=== PATIENT | female | born 2000 | race Two or more races ===

== ENCOUNTER 2024-10-26 11:32 | Inpatient (IN) | payer BC, MEDICAID, SELFPAY ==
[2024-10-26] VITALS (160 sets, daily range): BP systolic 103–155; BP diastolic 55–100; PULSE 73–123; RESP 18–99; TEMP 36.6–37; O2SAT 94–100; BMI 41.3
[2024-10-26 12:20] LABS: ROM Kit Lot # 57809118; ROM Swab Mixed By: KB; Rupture of Fetal Membranes Positive (Negative); Swb Mxed in Solvent 1 min? Yes
[2024-10-26 13:29] LABS: Basophils # (Auto) 0.1 Thou/mm3 (0.0-0.2); Basophils % (Auto) 0 % (0-2.5); Eosinophils % (Auto) 0 % (0-10); Hematocrit 37.6 % (36.0-46.0); Hemoglobin 12.7 g/dL (12.0-16.0); Immature Granulocytes % (Auto) 1 % (0-0); Immature Granulocytes Auto 0.08 Thou/mm3 (0.00-0.00); Lymphocytes # (Auto) 2.7 Thou/mm3 (1.0-4.8); Lymphocytes % (Auto) 20 % (10-50); Mean Corpuscular HGB Conc 33.8 g/dl (31.0-37.0); Mean Corpuscular Hemoglobin 28.4 pg (25.0-35.0); Mean Corpuscular Volume 84 fL (80-100); Monocytes # (Auto) 0.9 Thou/mm3 (0.0-0.8); Monocytes % (Auto) 7 % (0-12); Neutrophils # (Auto) 9.7 Thou/mm3 (1.8-7.7); Neutrophils % (Auto) 72 % (37-80); Nucleated Red Blood Cell % 0 /100 WBC (0); Platelet Count 317 Thou/mm3 (140-440); RDW Standard Deviation 42.2 fL (36.4-46.3); Red Blood Count 4.47 Miln/mm3 (4.00-5.20); White Blood Count 13.4 Thou/mm3 (3.6-11.0)
[2024-10-26 13:58] LABS: Syphilis Nonreactive (Nonreactive)
[2024-10-26] MEDS: RINGERS LACTATED 1000 ML 1,000 ML 125 ML IV ×4 (16:10→20:35)
[2024-10-26 16:51] LABS: Collection Type, Urine Clean Catch
[2024-10-26 17:06] LABS: Bilirubin,Urine Negative (Negative); Blood,Urine 2+ (Negative); Clarity,Urine Clear (Clear/Hazy); Color,Urine Colorless (Lt Yel-Yel); Glucose, Urine Negative (Negative); Ketones,Urine Negative (Negative); Leukocyte Esterase,Urine Positive (Negative); Nitrite,Urine Negative (Negative); Protein,Urine Negative (Neg - Trace); RBC,Urine 1 /hpf (0-3); Specific Gravity,Urine 1.006 (1.001-1.035); Squamous Epithelial Cell,Urine 2 /hpf (0-5); Urobilinogen,Urine Negative mg/dL (0.0-1.0); WBC,Urine 8 /hpf (0-5)
[2024-10-26] MEDS: RINGERS LACTATED 1000 ML 1,000 ML 999 ML IV (17:12)
[2024-10-26] MEDS: ceFAZolin/D5W 2 GM IV 2 GM/100 ML BAG IV (17:12)
--- NOTE | 2024-10-26 17:17 | PD.LDHP ---
Documentation for date of: 10/26/24 OB Labor/Induct. HPI History of Present Illness Chief complaint: Leaking fluid and contractions : 1 Para: 0 FRANCIS: 11/04/24 Gestational Age (weeks): 38 Gestational Age (days): 5 History of present illness: Patient is a 24-year-old G1, P0 who receives her care in [place] who came to our triage the afternoon of 10/26/2024 reporting possible leaking fluid at 2000 on 10/25/2024. Patient was seen in triage and found to be hernandez irregularly. An AmniSure was positive for cervical exam on admission was 2 to 3 cm dilated 60% effaced and -3 station. We were able to obtain her records and she is group B strep negative History of Present Dating criteria: LMP confirmed by 2nd trimester US Adequate Care: Yes Ultrasounds: normal mid trimester US Obstetrical complications: none Medical complications: none Labs Maternal Blood Type: O Pos Labs: Negative: Hepatitis B, Rubella Titre, HIV, Chlamydia, Gonorrhea and Group Beta Strep Narrative: Patient is rubella nonimmune and all other labs are normal. Review of Systems Review of Systems Systems Reviewed: All systems reviewed, normal except as documented Narrative Review of Systems: Patient reports leaking since 2001 1324 she reports good movement irregular contractions getting stronger and denies any vaginal bleeding. Past Medical History Past Medical History Comments PMH COMMENT: Patient denies any significant past medical history or surgical history Meds Home Medications and Allergies Allergies Allergy/AdvReac Type Severity Reaction Status Date / Time No Known Allergies Allergy Verified 10/26/24 12:56 OB Exam Physical Exam Vital signs: Temp Pulse Resp BP Pulse Ox 98.1 F 88 18 141/88 H 97 10/26/24 14:19 10/26/24 16:24 10/26/24 14:19 10/26/24 16:24 10/26/24 17:14 Routine Cardiovascular Exam Cardiovascular: Present RRR Routine Abdominal Exam Abdominal: Present soft and normoactive bowel sounds Detailed Labor and Delivery Exam Dilation (cm): 3 Effacement (%): 70 Cervix position: mid station: -2 Consistency: soft Presentation: Vertex Membranes: ruptured Amniotic fluid: clear monitor accelerations: 15x15 monitor decelerations: Variable intermediate variability: Moderate (11-25) Contraction frequency (min): 2-3 Contraction duration (sec): 30 Tachysystole: No Contraction intensity: Strong IUPC Murray units: 220 Routine Extremities Exam Extremities: Present full ROM Comments: Patient has a what appears to be cellulitis around a mosquito bite on her right anterior lower leg Routine Skin Exam Skin: Present intact, dry and warm Routine Psychiatric Exam Psychiatric: Present normal affect and normal thought process OB Results Labs 10/26/24 12:50 10/26/24 16:40 Labs: Short CBC 10/26/24 Range/Units 12:50 WBC 13.4 H (3.6-11.0) Thou/mm3 Hgb 12.7 (12.0-16.0) g/dL Hct 37.6 (36.0-46.0) % Plt Count 317 (140-440) Thou/mm3 OB Assessment & Plan Assessment and Plan (1) : Status: Acute (2) Prolonged rupture of membranes: Status: Acute Additional Plan Plan: anticipate NVD Additional Plan Comment: Add Ancef or prolonged rupture of membranes. Epidural and pain management discussed with patient and father of baby at bedside. (1) Qualifiers: Weeks of gestation: 38 weeks Qualified Code(s): Z3A.38 - 38 weeks gestation of
[2024-10-26 17:40] LABS: Fibrinogen 453 mg/dL (175-375); Partial Thromboplastin Time 26.2 Seconds (22.0-36.0); Prothrombin Time 10.5 Seconds (9.0-12.2)
[2024-10-26 17:46] LABS: Alanine Aminotransferase 17 U/L (10-49); Albumin, Serum 3.9 gm/dL (3.5-5.0); Albumin/Globulin Ratio 1.6 (1.2-2.2); Alkaline Phosphatase 162 U/L (46-116); Anion Gap 9 (7-16); Aspartate Amino Transferase 23 U/L (0-34); BUN/Creatinine Ratio 10 Ratio (12-20); Bilirubin,Total 0.8 mg/dL (0.3-1.2); Blood Urea Nitrogen 6 mg/dL (9-23); Calcium 9.3 mg/dL (8.3-10.6); Calcium (Corrected) 9.4 mg/dL (8.5-10.1); Carbon Dioxide 19.7 mMol/L (20.0-31.0); Chloride 109 mMol/L (98-107); Creatinine (Component) 0.6 mg/dL (0.6-1.3); Estimated Creatinine Clearance 168.2 mL/min (>60); Globulin 2.5 gm/dL (2.3-3.5); Glucose 81 mg/dL (74-106); Osmolality,Calculated 272 (275-295); Sodium 138 mMol/L (136-145); Total Protein 6.4 gm/dL (5.7-8.2); Uric Acid 4.5 mg/dL (3.1-7.8); eGFR > 60 See Note
[2024-10-26] MEDS: TERBUTALINE SULF INJ 1 MG/ML VIAL 0.25 MG SC (19:02)
--- NOTE | 2024-10-26 22:47 | PD.LDPN ---
Documentation for date of: 10/26/24 OB Labor Progress Note Pain Control Pain control: epidural Pelvic Exam Dilation (cm): 5 Effacement (%): 90 station: 0 Amniotic membrane status: Ruptured Contractions Monitor mode: Internal Contraction frequency: 4-5 Contraction intensity: Mild Status status: Category l Assessment and Plan Assessment: active labor Plan OB labor note: begin Pitocin augmentation Comments: Contractions have spaced. Will start Pitocin augmentation at this time. Patient is on Ancef for prolonged rupture membranes. Will add Tylenol if temperature increases to 99.5 Fdegrees or higher. Right now patient is 98 6.F
[2024-10-27] VITALS (96 sets, daily range): BP systolic 76–155; BP diastolic 57–111; PULSE 84–131; RESP 13–22; TEMP 36.4–37.1; O2SAT 91–100
[2024-10-27] MEDS: RINGERS LACTATED 1000 ML 1,000 ML 125 ML IV (00:25)
[2024-10-27] MEDS: ceFAZolin/D5W 2 GM IV 2 GM/100 ML BAG IV (01:00)
[2024-10-27] MEDS: OXYTOCIN in NS 30 units 30 UNIT/500 ML BAG IV (02:27)
--- NOTE | 2024-10-27 03:57 | PD.LDPN ---
Documentation for date of: 10/27/24 OB Labor Progress Note Pain Control Pain control: epidural Pelvic Exam Dilation (cm): 8-9 Effacement (%): 90 station: +1 Amniotic membrane status: Ruptured Contractions Monitor mode: Internal Contraction frequency: 2-3 Contraction intensity: Mild Intrauterine tone measurement: 120 Status status: Category ll Assessment and Plan Pitocin rate (mU/min): 1 Plan OB labor note: Comments: heart tones with periods of decreased to minimal variability and some prolonged decelerations. Patient is 8 to 9 cm 30 and the head is pretty high at 0to +1 with caput. I had her bear down to try to push the cervix away and she cannot do it. Since patient is remote from delivery and has a while to push with frequent decelerations and category 2 tracing I would recommend a section at this point and the patient and her significant other agree. Patient was consented for a primary
[2024-10-27] MEDS: AZITHROMYCIN INJ 500 MG in SODIUM CHLORIDE 0.9% 250 ML 250 ML 250 MG IV (04:19)
[2024-10-27] MEDS: CITRIC ACID/SODIUM CITR 15 ML UDC (BICITRA) 30 ML PO (04:19)
[2024-10-27] MEDS: FAMOTIDINE INJ 10 MG/ML VIAL 2 ML 20 MG IV (04:20)
--- NOTE | 2024-10-27 05:24 | ESOP_ITS ---
Operative Note - ICT DEVELOPER Procedure Date of procedure: 10/27/24 Procedure Performed: Primary low-transverse section Indication: Persistent category 2 tracing, 8 to 9 cm dilated Pre-Op diagnosis: 1. Intrauterine at 38-6/7 weeks 2. Prolonged rupture of membranes 3. Persistent category 2 tracing 4. 8 to 9 cm dilate 5. Maternal BMI 41 Post-Op diagnosis: Same Anesthesia type: Epidural (Bolused epidural) Procedure description: After obtaining informed consent, the patient was brought back to the operating room and her epidural bolused to obtain excellent anesthesia. She was then prepped and draped in the dorsal supine position with a leftward tilt in a normal sterile fashion. A Grijalva catheter had been inserted during the patient's labor. Patient was given Ancef and azithromycin preop by anesthesia. A Pfannenstiel skin incision was made with a scalpel and carried down to the underlying fascia. The fascia was incised in the midline and the fascial incision extended laterally using Franco scissors. The superior aspect the fascia was grasped with Lizette clamps and the underlying rectus muscles dissected off using blunt and sharp dissection. This was repeated in the inferior aspect of the incision. The rectus muscles were the midline, and the peritoneum was picked up and entered sharply with Metzenbaum's. This was extended superiorly and inferiorly with good visualization of the bladder. The Bladder blade was inserted and the lower uterine segment incised in a transverse fashion above the bladder reflection using a scalpel. The uterine incision was extended laterally using blunt dissection with the surgeon's fingers. The bag anderson ruptured and clear fluid was noted. The bladder blade was removed and the infant was delivered atraumatically. The cord was clamped and cut and the was handed off to the waiting pediatric staff. Cord blood was collected. Cord gases were saved. The placenta was then manually removed and handed off the operating field. The uterus was exteriorized and cleared of all clots and debris. The uterine incision was repaired using 1-0 Monocryl in a running locked fashion and excellent hemostasis was noted. The uterus was returned to the patient's abdominal cavity and copious irrigation carried out with warm normal saline. The uterine incision was examined several times and noted be hemostatic. After ensuring the rectus muscles were hemostatic, these were reapproximated in the midline using a running suture of 0 Vicryl. The fascia was closed with 0 Vicryl in a running fashion. The subcutaneous tissues were irrigated and found to be hemostatic. These were reapproximated using 2 layers of 3-0 plain. The skin was closed with a subcuticular suture of 4-0 Monocryl. The patient tolerated the procedure well, sponge lap and needle counts were correct x 2, the patient went to the recovery area in stable condition. Of note the baby was in recovery in stable condition. Fluid amount (mL): 1,000 Urine output (mL): 150 Specimen: none Implants: None Estimated blood loss (ml): 400 Findings: Liveborn female in the OT presentation with a loose nuchal cord x 1 no meconium . Apgars were 9 and 9. Weight was 7 pounds 0 ounces the placenta was complete spontaneous grossly normal. The patient's tubes and ovaries and uterus appeared grossly normal. Complications: none Surgical staff Operation Date: 10/27/24 04:30 <No data on this case meets the specified criteria> Diagnosis Discharge Diagnosis (1) Prolonged rupture of membranes: Status: Acute (2) : Status: Acute (3) delivery delivered: Status: Acute Problem List Completed Was Problem List Reviewed/Reconciled?: Yes (2) Qualifiers: Weeks of gestation: 38 weeks Qualified Code(s): Z3A.38 - 38 weeks gestation o f
[2024-10-27] MEDS: OXYTOCIN in NS 20 units 20 UNIT/1,000 ML BAG 125 UNIT IV ×2 (07:00→15:48)
[2024-10-27] MEDS: KETOROLAC INJ 30 MG/ML VIAL IVP ×2 (07:23→15:48)
[2024-10-27] MEDS: ACETAMINOPHEN IVPB 1,000 MG/100 ML VIAL 250 MG IV (12:01)
[2024-10-27] MEDS: ACETAMINOPHEN 325 MG TABLET 650 MG PO (20:23)
[2024-10-28 00:04] VITALS: BP 138/89; PULSE 106; RESP 20; TEMP 36.4; O2SAT 97
[2024-10-28 04:37] VITALS: BP 128/81; PULSE 109; RESP 22; TEMP 36.7; O2SAT 97
[2024-10-28 07:03] LABS: Basophils % (Auto) 0 % (0-2.5); Eosinophils % (Auto) 0 % (0-10); Hematocrit 26.4 % (36.0-46.0); Immature Granulocytes % (Auto) 1 % (0-0); Immature Granulocytes Auto 0.08 Thou/mm3 (0.00-0.00); Lymphocytes # (Auto) 2.5 Thou/mm3 (1.0-4.8); Lymphocytes % (Auto) 19 % (10-50); Mean Corpuscular HGB Conc 33.3 g/dl (31.0-37.0); Mean Corpuscular Hemoglobin 28.6 pg (25.0-35.0); Mean Corpuscular Volume 86 fL (80-100); Monocytes # (Auto) 0.8 Thou/mm3 (0.0-0.8); Monocytes % (Auto) 6 % (0-12); Neutrophils # (Auto) 9.7 Thou/mm3 (1.8-7.7); Neutrophils % (Auto) 74 % (37-80); Nucleated Red Blood Cell % 0 /100 WBC (0); Platelet Count 236 Thou/mm3 (140-440); RDW Standard Deviation 44.2 fL (36.4-46.3); Red Blood Count 3.08 Miln/mm3 (4.00-5.20); White Blood Count 13.2 Thou/mm3 (3.6-11.0)
[2024-10-28 07:14] LABS: Hemoglobin 8.8 g/dL (12.0-16.0)
--- NOTE | 2024-10-28 07:24 | PC.NURSE ---
[address] Luna about pts H&H of 8.8 and 26.4, no new orders.
[2024-10-28] MEDS: SIMETHICONE 80 MG CHEW PO ×2 (07:59→15:29)
[2024-10-28 08:00] VITALS: BP 132/80; PULSE 96; RESP 19; TEMP 36.7; O2SAT 97
[2024-10-28] MEDS: HYDROcodone/APAP 5/325 TABLET 2 TAB PO (08:00)
--- NOTE | 2024-10-28 12:03 | ESPR_ITS ---
Subjective Subjective Interval history: Patient doing well overall. Pain is controlled. She is ambulating with minimal lightheadedness this morning. Voiding spontaneously since love was removed, no issues. Tolerating regular diet without nausea/vomiting. Passing gas. No fevers/chills, no CP/SOB. Exam Vital Signs Temp Pulse Resp BP Pulse Ox O2 Del Method 98.0 F 96 19 132/80 H 97 Room Air 10/28/24 08:00 10/28/24 08:00 10/28/24 08:00 10/28/24 08:00 10/28/24 08:00 10/28/24 08:00 Narrative Exam General: well developed, well nourished, no acute distress, conversant Cardiac: normal heart rate Lungs: breathing without distress Abdomen: soft, post-gravid, non-tender, no rebound or guarding, pfannenstiel incision covered by dry/clean/intact prineo bandage. Incision well reapproximated. No erythema, drainage or induration. Fundus firm at u-2cm. Extremities: no pain with palpation of calves, trace edema of BLE Objective Labs 10/28/24 06:48 10/26/24 16:40 Labs: Laboratory Results - last 24 hr 10/28/24 06:48 WBC 13.2 H RBC 3.08 L Hgb 8.8 L D Hct 26.4 L D MCV 86 MCH 28.6 MCHC 33.3 RDW Std Deviation 44.2 Plt Count 236 D Neut % (Auto) 74 Lymph % (Auto) 19 Beckham % (Auto) 6 Eos % (Auto) 0 Baso % (Auto) 0 Neut # (Auto) 9.7 H Lymph # (Auto) 2.5 Beckham # (Auto) 0.8 Eos # (Auto) 0.0 Baso # (Auto) 0.0 Immature Gran # (Auto) 0.08 H Absolute Nucleated RBC 0.00 Immature Gran % 1 H Nucleated RBC % 0 Assessment & Plan Problem List (1) delivery delivered: Status: Acute Assessment and plan: Claudia is a 24yo G1 nowP1 s/p uncomplicated PLTCS for persistent Cat II FHRT remote from delivery with prolonged ROM, doing well on POD 1. Vitals wnl, benign exam. Hemodynamically stable with no evidence of infection. Hgb 8.8 from 12.7. Plan: -Continue routine /post-op care -Regular diet -continue present pain management regimen -Encourage ambulation and use of IS -Anticipate discharge home tomorrow if meeting all milestones (2) Prolonged rupture of membranes: Status: Acute (3) : Status: Acute Time Spent With Patient Time: Total time spent is greater than 50% in coordination of care (as documented) at patient's floor/unit and/or counseling patient:
[2024-10-28] MEDS: IBUPROFEN TAB 400 MG TABLET 800 MG PO (15:29)
[2024-10-28 15:39] VITALS: BP 128/87; PULSE 94; RESP 18; TEMP 36.8; O2SAT 97
[2024-10-28 20:23] VITALS: BP 113/78; PULSE 95; RESP 18; TEMP 36.9; O2SAT 98
[2024-10-29] VITALS (7 sets, daily range): BP systolic 117–156; BP diastolic 79–107; PULSE 90–100; RESP 17–20; TEMP 36.6–36.7; O2SAT 97–98
[2024-10-29] MEDS: HYDROcodone/APAP 5/325 TABLET 1 TAB PO ×3 (05:37→23:06)
[2024-10-29] MEDS: SIMETHICONE 80 MG CHEW PO (05:40)
--- NOTE | 2024-10-29 06:44 | PD.LDDS ---
DS: Providers Provider Date of admission: 10/27/24 08:02 Primary care physician: Physician No Primary/Family Admitting Provider: Dipti Davis MD Attending Provider on Admission: Maricel Luna MD Consults: 10/27/24 05:20 Referral Routine Comment: Attending Provider on DC: Maricel Luna MD Discharging Provider: Maricel Luna MD DS: Diagnosis Discharge Diagnosis (1) Prolonged rupture of membranes: Status: Acute (2) delivery delivered: Status: Acute Problem List Completed Was Problem List Reviewed/Reconciled?: Yes Summary/Hosp Course Brief History: Patient is a 24-year-old G1, P0 who receives her care in [place] who came to our triage the afternoon of 10/26/2024 reporting possible leaking fluid at 2000 on 10/25/2024. Patient was seen in triage and found to be hernandez irregularly. An AmniSure was positive for cervical exam on admission was 2 to 3 cm dilated 60% effaced and -3 station. We were able to obtain her records and she is group B strep negative She is doing well on POD 2 s/p uncomplicated section. She has had an uncomplicated post-operative course, meeting all milestones and feels ready for discharge home. She is ambulating without lightheadedness, tolerating regular diet no n/v, spontaneously voiding without issue. She has no chest pain or shortness of breath. No fevers or chills. Pain well controlled. Vitals normal, benign exam. Hemodynamically stable with no evidence of infection. Post-op Hgb 8.8. Peripartum Data Procedures: Procedures Operation Date: 10/27/24 04:30 Actual Procedure Side Surgeon p in OB Adri Davis MD Status at Discharge Functional status at discharge: independent ambulation Overall status at discharge: patient is back to baseline Time Spent with Patient Time attestation: Total time spent providing and/or coordinating discharge services: Exam Vital Signs Temp Pulse Resp BP Pulse Ox O2 Del Method 98.1 F 96 20 123/82 98 Room Air 10/29/24 05:52 10/29/24 05:52 10/29/24 05:52 10/29/24 05:52 10/29/24 05:52 10/29/24 05:52 Narrative Exam General: well developed, well nourished, no acute distress, conversant Cardiac: normal heart rate Lungs: breathing without distress Abdomen: soft, post-gravid, non-tender, no rebound or guarding, pfannenstiel incision covered by dry/clean/intact prineo bandage. Incision well reapproximated. No erythema, drainage or induration. Fundus firm at u-2cm. Extremities: no pain with palpation of calves, trace edema of BLE Discharge Plan Plan Patient Disposition: HOME (Self Care) Patient condition on transfer: Stable Prescriptions/Referrals Prescriptions/Med Rec: New hydrocodone-acetaminophen 5-325 mg Tablet 1 tab PO Q4HR MDD 4 tablets PRN (Reason: Patient rated pain 7 to 8) 10 Days Qty: 12 0RF ibuprofen 800 mg tablet 800 mg PO Q8H PRN (Reason: pain) Qty: 30 0RF ferrous sulfate 325 mg (65 mg iron) tablet 325 mg PO QDAY Qty: 60 0RF polyethylene glycol 3350 17 gram powder in packet 17 g PO QDAY Qty: 14 0RF Referrals: No Primary/Family,Physician [Primary Care Provider] - Patient/Caregiver Discharge Instructions Discharge Activity: activity as tolerated Other Discharge Activity Instructions:: vaginal rest and no heavy lifting more than 10 pounds for 6 [address] while taking narcotic. Keep incision clean/dry, shower and then pat dry well after- do not submerge. Other Discharge Diet Instructions: Regular Education Materials: C Section Dc Print Language: Niuean Activity Restrictions/Additional Instructions: follow up for incision check with OBGYN or CNM in 1 week, call for appointment Stand Alone Forms: Yanira Award Info., Patient Portal Info Letter Discharge Order Discharge Orders: Discharge (Routine); Ordered 10/29/24 Ordered By: Maricel Luna Planned Discharge Date 10/29/24
--- NOTE | 2024-10-29 15:35 | PC.LAC ---
follow up on mom for pumping, she is staying on schedule every 2 hours for pumping, doing 20 minutes with hand massage prior. mom seeing more milk than the last pumping cycle. this last one yielded 30 ml of milk. explained she can use that to supplement the baby, since she was told by embryology professor to add 30 mls on top of a breast feed to ensure that baby starts have bowel movements again. parents understood
--- NOTE | 2024-10-29 19:01 | PD.LDPN ---
Documentation for date of: 10/29/24 OB Labor Progress Note Pelvic Exam Amniotic membrane status: Ruptured Assessment and Plan Comments: After rounds and placing discharge order, RN notified me that patient was having high mild range bp's. No other concerning sx. Prior to this she had been normotensive. Baby needs to stay for bili light another day, so will not discharge patient today- will continue to observe bp's until tomorrow. Maricel Luna MD
[2024-10-30 00:15] VITALS: BP 136/89; PULSE 92; RESP 19; TEMP 36.9; O2SAT 98
[2024-10-30 04:00] VITALS: BP 138/89; PULSE 92; RESP 17; TEMP 36.8; O2SAT 97
[2024-10-30] MEDS: HYDROcodone/APAP 5/325 TABLET 1 TAB PO (05:42)
[2024-10-30 08:20] VITALS: BP 136/80; PULSE 97; RESP 17; TEMP 36.7; O2SAT 98
== END 2024-10-30 11:15 | disposition home or self-care (01) | DRG 787 ==
LOC: S4SX 10-27 03:44 → S4NX 10-27 04:56 → S4SX 10-30 08:04 → S4NX 10-30 08:07 → S4SX 10-31 11:56
PROVIDERS: Admitting Provider Obstetrics & Gynecology; Visit Provider Obstetrics & Gynecology
PROC: (CPT 59514; principal; 2024-10-27 04:15)
DX: O42.92 Full-term premature rupture of membranes, unspecified as to length of time between rupture and onset of labor (principal); L03.115 Cellulitis of right lower limb; Z37.0 Single live birth; Z3A.38 38 weeks gestation of pregnancy; O69.81X0 Labor and delivery complicated by cord around neck, without compression, not applicable or unspecified; S80.861A Insect bite (nonvenomous), right lower leg, initial encounter; W57.XXXA Bitten or stung by nonvenomous insect and other nonvenomous arthropods, initial encounter
CPT/HCPCS: 36415; 59409; 59899; 80053; 81001; 84112; 84550; 85025; 85384; 85610; 85730; 86780; 86850; 86900; 86901; 94664; 94762; A9270; G0378; J0131; J0456; J0689; J1885; J2590; J2795; J3010; J3105; J3490; J7050; J7120; J1920

== ENCOUNTER 2024-11-12 08:53 | Outpatient (AMB) | payer BC, MEDICAID, SELFPAY ==
--- NOTE | 2024-11-12 08:46 | AMB.GYNCLNOT ---
Vital Signs 11/12/24 09:08 Height 1.6 m Height Method Stated Weight 95.708 kg Weight Measurement Method Standing Scale BMI 37.3 BP 137/91 H Blood Pressure Source Automatic Cuff Blood Pressure Location Left Upper Arm Position Sitting Respiration 14 Pulse 76 Pulse Source Monitor Temp 97.4 F Temp Source Oral Pulse Oximetry (%) 98 Oxygen Delivery Method Room Air Allergies/Home Meds Allergies & Medications Allergies No Known Allergies Allergy (Verified 11/12/24 08:47) Medication Reconciliation ferrous sulfate 325 mg (65 mg iron) tablet 325 mg PO QDAY #60 tabs 10/29/24 [Rx Confirmed 11/12/24] ibuprofen 800 mg tablet 800 mg PO Q8H PRN pain #30 tabs 10/29/24 [Rx Confirmed 11/12/24] polyethylene glycol 3350 17 gram oral powder packet 17 g PO QDAY #14 ea 10/29/24 [Rx Confirmed 11/12/24] Intake Visit Data Collection New Patient or Established: Established Patient (seen at [facility] within 3 years) Reason for Visit:: C Section follow up Seen by Clinical Staff ONLY (RN/MA): No Director Of Graduate Admissions Required: No Do You Feel Safe at Home: Yes Authorities Contacted: N/A Primary Care Provider: Laura Martin PCP or OBGYN visit in last 3 months: Yes Hx Now: No Are you currently on any form of Control: No Last menstrual period: 01/26/24 Pain Present Currently: No Pain Scale Used: Cannon-Yanes/Numerical Pain scale:: 0 Smoking Status Smoking Status: Never smoker 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 1. Little interest or pleasure in doing things: not at all 2. Feeling down, depressed, or hopeless: not at all Total score: 0 PHQ-9 3. Trouble falling or staying asleep, or sleeping too much: Not at all 4. Feeling tired or having little energy: Nearly every day 5. Poor appetite or overeating: Not at all 6. Feeling bad about yourself - or that you are a failure or have let yourself or your family down: Not at all 7. Trouble concentrating on things, such as reading the newspaper or watching television: Not at all 8. Moving or speaking so slowly that other people could have noticed? - Or the opposite - being so fidgety or restless that you have been moving around a lot more than usual: not at all 9. Thoughts that you would be better off or of hurting yourself in some way: Not at all Total score: 3.0 If you checked off any problems, how difficult have these problems made it for you to do your work, take care of things at home, or get along with other people?: not difficult at all Source: Developed by Drs. Tyrel Ventura, Natasha Nix, Richie Guerrero and colleagues, with an educational talon from [facility]. Depression screen completed yes Social History Living Situation History Marital Status: Lives With: Family Housing: House Tobacco History Smoking Status: Never smoker Second Hand Smoke Exposure: No Alcohol History Alcohol Intake: Never Substance Use History Substance Use: none Domestic Abuse History Do You Feel Safe at Home: Yes Past Medical History Past Medical History Have you ever been diagnosed with any of the following: Neurological Problems Cerebrovascular Accident (CVA): No Transient Ischemic Attacks (TIA): No Dementia: No Alzheimer's Disease: No Parkinson's Disease: No Brain Tumor: No Meningitis: No Seizures: No Guillain-[place] Syndrome: No Cardiology Problems Myocardial Infarction: No Cardiac Arrhythmia: No Atrial Fibrillation: No Angina: No Heart Murmur: No Congestive Heart Failure: No Respiratory Problems Chronic Obstructive Pulmonary Disease (COPD): No Stomache/Intestinal Problems Liver Cancer: No Hepatitis: No Cirrhosis: No Pancreatic Cancer: No Pancreatitis: No Colorectal Cancer: No Genital/Urinary Problems Renal Disease: No Reproductive Problems Breast Cancer: No Endometriosis: No Pelvic Inflammatory Disease: No Previous Pregnancies: No Uterine Prolapse: No Musculoskeletal Problems Muscular Dystrophy: No Myasthenia Gravis: No Marfan's Syndrome: No Bone Cancer: No Head,Eye,Nose,Throat Problems Cataracts: No Glaucoma: No Blind: No Retinal Detachment: No Endocrine Problems Diabetes Mellitus Type 1: No Diabetes Mellitus Type 2: No Hypoglycemia: No [place]'s Syndrome: No Glenn's Disease: No Hyperthyroidism: No Hypothyroidism: No Thyroid Cancer: No Blood Problems Anemia: No Leukemia: No Hemophilia: No Thalassemia: No Sickle Cell Disease: No Clotting Problems: No Other Problems Hospitalization: No Down Syndrome: No Developmental Delay: No Shingles: No Falls: No Blood Transfusions: No Blood Transfusion Reaction: No Anesthesia Reactions: No Human Immunodeficiency Virus (HIV): No Chicken Pox: No Measles: No Mumps: No Rubella ([place] Measles): No Pertussis: No Clostridium Difficile: No Cancer: No Cervical Cancer: No Lung Cancer: No Surgical History Angioplasty: No Appendectomy: No Bariatric Surgery: No Breast Surgery: No History of Present Illness HPI Narrative The patient is a woman who underwent a section on October 27, performed by Dr. Davis, after dilating to 8 centimeters without further cervical progression. She reports her baby, Heike, is doing well and has a shoe fitter. Her care was provided by Dr. Moris Martin in [place]. The patient was advised to clean the incision with soap and water, allowing it to dry before dressing, and to wear a support belt when walking, driving, or sitting up for long periods. She was informed about various control options to consider for the next visit and recommended to wait two years before the next to allow for proper healing. Review of Systems Review of Systems Systems Reviewed: All systems reviewed, normal except as documented Exam General Limitations: no limitations General Appearance: alert, in no apparent distress, comfortable, cooperative, healthy appearing, well developed and well groomed Head Head exam: atraumatic, normocephalic and normal inspection Eye Eye exam: Present normal appearance, PERRL and EOMI Neck Neck exam: Present normal inspection, full ROM and trachea midline Chest Chest inspection: Present normal inspection and symmetric chest wall rise Abdominal Abdominal exam: Present soft, normal bowel sounds and other (incision c/d/i, dressing removed) Extremities Extremities exam: Present normal inspection and full ROM Psych Psychiatric exam: Present normal affect and normal mood Skin Skin exam: Present warm, dry, intact and normal color Assessment & Plan Diagnosis / Problem List (1) delivery delivered: Status: Acute Plan: - 2 weeks post section performed on October 27, [address] Davis. - Incision site healing well, no signs of infection, no dressing required. - Clean incision site with regular soap and water, allow to dry before dressing. - Wear abdominal binder when walking, driving, or sitting for extended periods. - Follow-up appointment scheduled in 4 weeks (6 weeks ) with Dr. Davis. - Advised to wait minimum 2 years before next for proper healing. (2) Pain during period as sequela of section: Status: Acute (3) General counseling and advice on female contraception: Status: Acute Assessment and Plan: - Discuss and decide on contraception options at next visit. - LARCs discussed as first-line options (Depo-Provera, IUDs, subdermal implant). - Non-hormonal copper IUD mentioned as option to avoid weight gain. - Patient to research contraceptive options before next appointment. - Initiate chosen contraceptive method after 6-8 weeks . 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
[2024-11-12 09:08] VITALS: BP 137/91; PULSE 76; RESP 14; TEMP 36.3; O2SAT 98; BMI 37.3
== END 2024-11-12 09:18 | disposition home or self-care (01) ==
LOC: HODSOBC 08:53
PROVIDERS: Supervising Provider Obstetrics & Gynecology; Visit Provider Obstetrics & Gynecology
DX: Z39.2 Encounter for routine postpartum follow-up (principal); O90.89 Other complications of the puerperium, not elsewhere classified; G89.18 Other acute postprocedural pain; Z30.09 Encounter for other general counseling and advice on contraception
CPT/HCPCS: 99203; 99213; Z1038; G0463

== ENCOUNTER 2024-12-31 08:22 | Outpatient (AMB) | payer BC, MEDICAID, SELFPAY ==
--- NOTE | 2024-12-31 08:23 | GYNCLNT_ITS ---
Vital Signs 12/31/24 08:31 Height 1.6 m Height Method Stated Weight 99.904 kg Weight Measurement Method Standing Scale BMI 38.9 BP 134/90 H Blood Pressure Source Automatic Cuff Blood Pressure Location Left Upper Arm Position Sitting Respiration 16 Pulse 85 Pulse Source Monitor Temp 97.8 F Temp Source Oral Pulse Oximetry (%) 99 Oxygen Delivery Method Room Air Allergies/Home Meds Allergies & Medications Allergies No Known Allergies Allergy (Verified 12/31/24 08:33) Medication Reconciliation ferrous sulfate 325 mg (65 mg iron) tablet 325 mg PO QDAY #60 tabs 10/29/24 [Rx Confirmed 12/31/24] ibuprofen 800 mg tablet 800 mg PO Q8H PRN pain #30 tabs 10/29/24 [Rx Confirmed 12/31/24] polyethylene glycol 3350 17 gram oral powder packet 17 g PO QDAY #14 ea 10/29/24 [Rx Confirmed 12/31/24] Intake Visit Data Collection New Patient or Established: Established Patient (seen at [facility] within 3 years) Reason for Visit:: 2-month visit, back pain possibly from the epidural, spinal , frequent fevers up to 105?F (4 times in 2 months), lightheadedness with fevers Seen by Clinical Staff ONLY (RN/MA): No Counter Former Required: No Do You Feel Safe at Home: Yes Authorities Contacted: N/A PCP or OBGYN visit in last 3 months: Yes Hx Now: No Are you currently on any form of Control: No Last menstrual period: 12/24/24 Pain Present Currently: Yes Pain Location: Back Pain Scale Used: Cannon-Yanes/Numerical Pain scale:: 4 Smoking Status Smoking Status: Never smoker 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 1. Little interest or pleasure in doing things: not at all 2. Feeling down, depressed, or hopeless: not at all Total score: 0 PHQ-9 3. Trouble falling or staying asleep, or sleeping too much: Not at all 4. Feeling tired or having little energy: Not at all 5. Poor appetite or overeating: Not at all 6. Feeling bad about yourself - or that you are a failure or have let yourself or your family down: Not at all 7. Trouble concentrating on things, such as reading the newspaper or watching television: Not at all 8. Moving or speaking so slowly that other people could have noticed? - Or the opposite - being so fidgety or restless that you have been moving around a lot more than usual: not at all 9. Thoughts that you would be better off or of hurting yourself in some way: Not at all Total score: 0 Source: Developed by Drs. Tyrel Ventura, Natasha Nix, Richie Guerrero and colleagues, with an educational talon from [employer]. Depression screen completed yes Social History Living Situation History Lives With: Family Housing: House Tobacco History Smoking Status: Never smoker Second Hand Smoke Exposure: No Alcohol History Alcohol Intake: Never Substance Use History Substance Use: none Domestic Abuse History Do You Feel Safe at Home: Yes Past Medical History Past Medical History Have you ever been diagnosed with any of the following: Neurological Problems Cerebrovascular Accident (CVA): No Transient Ischemic Attacks (TIA): No Dementia: No Alzheimer's Disease: No Parkinson's Disease: No Brain Tumor: No Meningitis: No Seizures: No Guillain-[place] Syndrome: No Cardiology Problems Myocardial Infarction: No Cardiac Arrhythmia: No Atrial Fibrillation: No Angina: No Heart Murmur: No Congestive Heart Failure: No Respiratory Problems Chronic Obstructive Pulmonary Disease (COPD): No Asthma: No Tuberculosis: No Hx Cough: No Cough: No Wheezing: No Chest Deformities: No Smoking: No Smoking Cessation Counseling: No Smoking Exposure: No Tobacco Use: No Stomache/Intestinal Problems Liver Cancer: No Hepatitis: No Cirrhosis: No Pancreatic Cancer: No Pancreatitis: No Colorectal Cancer: No Genital/Urinary Problems Renal Disease: No Reproductive Problems Breast Cancer: No Endometriosis: No Pelvic Inflammatory Disease: No Previous Pregnancies: No Uterine Prolapse: No Musculoskeletal Problems Muscular Dystrophy: No Myasthenia Gravis: No Marfan's Syndrome: No Bone Cancer: No Head,Eye,Nose,Throat Problems Cataracts: No Glaucoma: No Blind: No Retinal Detachment: No Endocrine Problems Diabetes Mellitus Type 1: No Diabetes Mellitus Type 2: No Hypoglycemia: No Price's Syndrome: No Glenn's Disease: No Hyperthyroidism: No Hypothyroidism: No Thyroid Cancer: No Blood Problems Anemia: No Leukemia: No Hemophilia: No Thalassemia: No Sickle Cell Disease: No Clotting Problems: No Psychologic Problems Depression: No Anxiety: No Behavior Problems: No Self-Mutilation: No Attention Deficit Disorder: No Depression: No Other Problems Hospitalization: No Down Syndrome: No Developmental Delay: No Shingles: No Falls: No Blood Transfusions: No Blood Transfusion Reaction: No Anesthesia Reactions: No Human Immunodeficiency Virus (HIV): No Chicken Pox: No Measles: No Mumps: No Rubella ([place]izen [place] Measles): No Pertussis: No Clostridium Difficile: No Cancer: No Cervical Cancer: No Lung Cancer: No Surgical History Angioplasty: No Appendectomy: No Bariatric Surgery: No Breast Surgery: No History of Present Illness HPI Narrative Claudia Cuadra, a 2-month patient, presents for a follow-up visit after a section performed on October 27, 2024. Her chief complaints include back pain and recurrent fevers. The patient reports experiencing back pain, which she believes may be related to the epidural or spinal anesthesia administered during her . Additionally, she has been experiencing frequent fevers since giving . She reports having had approximately four episodes of fever over the past two months. Most fevers have reached 103?F, with one severe episode reaching 105?F. The patient denies any associated symptoms such as chills or dysuria but does report feeling lightheaded during these fever episodes. Claudia is currently her infant, who is reportedly doing well. She mentions having received vaccines recently, though it's unclear if these are for herself or the baby. The patient reports having experienced a menstrual period since giving , noting that it was heavier than usual. Regarding her incision site, the patient does not report any specific concerns, and it appears to be healing appropriately for the 2-month postoperative timeframe. Medications and Supplements - Women's one-a-day multivitamin Review of Systems General: Positive for fever (up to 105?F), lightheadedness. Genitourinary: Negative for dysuria. Review of Systems Review of Systems Systems Reviewed: All systems reviewed, normal except as documented Exam General Limitations: no limitations General Appearance: alert, in no apparent distress, comfortable, cooperative, healthy appearing, well developed and well groomed Head Head exam: atraumatic, normocephalic and normal inspection Chest Chest inspection: Present normal inspection and symmetric chest wall rise Resp Respiratory exam: Present normal lung sounds bilaterally Abdominal Abdominal exam: Present soft and normal bowel sounds Psych Psychiatric exam: Present normal affect and normal mood Skin Skin exam: Present warm, dry, intact and normal color Assessment & Plan Diagnosis / Problem List (1) fever: Status: Acute (2) Bone disorder-: Status: Acute (3) General counseling and advice on female contraception: Status: Acute (4) Pain during period as sequela of section: Status: Acute Plan Claudia Cuadra, 2 months status post section on October 27, 2024, presents with recurrent fevers and back pain. Recurrent Fevers Assessment: Patient reports experiencing 4 episodes of fever since delivery, with temperatures ranging from 103?F to 105?F. Associated symptoms include lightheadedness. Differential diagnoses include mastitis, urinary tract infection, or endometritis. Given the intermittent nature and lack of specific associated symptoms, the etiology remains unclear. Further investigation is warranted to rule out infectious causes. Plan: - Order blood tests and urine culture to investigate fever etiology - Review test results with patient in 1-2 weeks - Defer antibiotic treatment pending test results due to status Back Pain Assessment: Patient reports back pain, possibly related to epidural anesthesia during section. Pain has persisted for 2 months post-delivery. Physical examination of the incision site shows good healing with some residual redness and inflammation, which is expected at this stage. Plan: - Reassure patient that incision healing is progressing normally - Educate that complete resolution of redness and inflammation may take 3-6 months - Encourage gradual return to normal activities as tolerated - No restrictions on weight, exercise, activities, or sexual intercourse Contraception Assessment: Patient expresses interest in contraceptive implant for control. Plan: - Schedule implant insertion for next visit (in 1-2 weeks) - Perform procedure after reviewing blood test results Care Assessment: Patient is 2 months , , and has experienced one menstrual period since delivery. Nutritional status and vitamin supplementation need to be addressed. Plan: - Recommend [id number] women's multivitamin daily - Educate on importance of balanced diet high in protein and calcium - Encourage regular exercise as tolerated - Follow up in 1-2 weeks for test results review and contraceptive implant insertion Office Procedures OB Clinic LOC & Office Proc's Nursing/Assessment Patient Status: Established Patient OB Clinic Nursing Assessment: Medication Reconciliation, Update PMH in EMR and Vital Signs OB Clinic Coordination of Care: Complex Care and Chronic Disease 1-5, Consent,records obtained, informed consent, Education Simp Pt/Fam and Staff clarify orders Established Patient Charge Established Patient Point Assignment: 85 Established Patient Point Charge: EP Level 3 (80-115)
[2024-12-31 08:31] VITALS: BP 134/90; PULSE 85; RESP 16; TEMP 36.6; O2SAT 99; BMI 38.9
== END 2024-12-31 09:02 | disposition home or self-care (01) ==
LOC: HODSOBC 08:22
PROVIDERS: PCP Obstetrics & Gynecology; Referring Provider Obstetrics & Gynecology; Supervising Provider Obstetrics & Gynecology; Visit Provider Obstetrics & Gynecology
DX: Z39.2 Encounter for routine postpartum follow-up (principal); O86.4 Pyrexia of unknown origin following delivery; O90.89 Other complications of the puerperium, not elsewhere classified; G89.18 Other acute postprocedural pain; M89.9 Disorder of bone, unspecified; Z30.017 Encounter for initial prescription of implantable subdermal contraceptive
CPT/HCPCS: 99213; G0463

== ENCOUNTER 2025-01-15 13:17 | Outpatient (AMB) | payer BC, MEDICAID, SELFPAY ==
[2025-01-15 13:47] VITALS: BP 114/74; PULSE 76; RESP 18; TEMP 36.2; O2SAT 99; BMI 37.8
--- NOTE | 2025-01-15 13:47 | GYNCLNT_ITS ---
Vital Signs 01/15/25 13:47 Height 1.6 m Height Method Stated Weight 96.729 kg Weight Measurement Method Standing Scale BMI 37.8 BP 114/74 Blood Pressure Source Automatic Cuff Blood Pressure Location Left Upper Arm Position Sitting Respiration 18 Pulse 76 Pulse Source Monitor Temp 97.2 F Temp Source Oral Pulse Oximetry (%) 99 Oxygen Delivery Method Room Air Allergies/Home Meds Allergies & Medications Allergies No Known Allergies Allergy (Verified 01/15/25 13:48) Medication Reconciliation ferrous sulfate 325 mg (65 mg iron) tablet 325 mg PO QDAY #60 tabs 10/29/24 [Rx Confirmed 01/15/25] ibuprofen 800 mg tablet 800 mg PO Q8H PRN pain #30 tabs 10/29/24 [Rx Confirmed 01/15/25] polyethylene glycol 3350 17 gram oral powder packet 17 g PO QDAY #14 ea 10/29/24 [Rx Confirmed 01/15/25] Intake Visit Data Collection New Patient or Established: Established Patient (seen at [facility] within 3 years) Reason for Visit:: Nexplanon insertion, follow-up on disability paperwork Seen by Clinical Staff ONLY (RN/MA): No Rectifier Operator Required: No Do You Feel Safe at Home: Yes Authorities Contacted: N/A PCP or OBGYN visit in last 3 months: Yes Hx Now: No Are you currently on any form of Control: No Pain Present Currently: No Pain Scale Used: Cannon-Yanes/Numerical Pain scale:: 0 Smoking Status Smoking Status: Never smoker [employer]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 1. Little interest or pleasure in doing things: not at all 2. Feeling down, depressed, or hopeless: not at all Total score: 0 PHQ-9 3. Trouble falling or staying asleep, or sleeping too much: Not at all 4. Feeling tired or having little energy: Not at all 5. Poor appetite or overeating: Not at all 6. Feeling bad about yourself - or that you are a failure or have let yourself or your family down: Not at all 7. Trouble concentrating on things, such as reading the newspaper or watching television: Not at all 8. Moving or speaking so slowly that other people could have noticed? - Or the opposite - being so fidgety or restless that you have been moving around a lot more than usual: not at all 9. Thoughts that you would be better off or of hurting yourself in some way: Not at all Total score: 0 If you checked off any problems, how difficult have these problems made it for you to do your work, take care of things at home, or get along with other people?: not difficult at all Source: Developed by Drs. Tyrel Ventura, Natasha Nix, Richie Guerrero and colleagues, with an educational talon from [employer]. Depression screen completed yes Social History Living Situation History Lives With: Family Housing: House Tobacco History Smoking Status: Never smoker Second Hand Smoke Exposure: No Alcohol History Alcohol Intake: Never Substance Use History Substance Use: none Domestic Abuse History Do You Feel Safe at Home: Yes Past Medical History Past Medical History Have you ever been diagnosed with any of the following: Neurological Problems Cerebrovascular Accident (CVA): No Transient Ischemic Attacks (TIA): No Dementia: No Alzheimer's Disease: No Parkinson's Disease: No Brain Tumor: No Meningitis: No Seizures: No Guillain-[place] Syndrome: No Cardiology Problems Myocardial Infarction: No Cardiac Arrhythmia: No Atrial Fibrillation: No Angina: No Heart Murmur: No Congestive Heart Failure: No Respiratory Problems Chronic Obstructive Pulmonary Disease (COPD): No Asthma: No Tuberculosis: No Hx Cough: No Cough: No Wheezing: No Chest Deformities: No Smoking: No Smoking Cessation Counseling: No Smoking Exposure: No Tobacco Use: No Stomache/Intestinal Problems Liver Cancer: No Hepatitis: No Cirrhosis: No Pancreatic Cancer: No Pancreatitis: No Colorectal Cancer: No Genital/Urinary Problems Renal Disease: No Reproductive Problems Breast Cancer: No Endometriosis: No Pelvic Inflammatory Disease: No Previous Pregnancies: No Uterine Prolapse: No Musculoskeletal Problems Muscular Dystrophy: No Myasthenia Gravis: No Marfan's Syndrome: No Bone Cancer: No Head,Eye,Nose,Throat Problems Cataracts: No Glaucoma: No Blind: No Retinal Detachment: No Endocrine Problems Diabetes Mellitus Type 1: No Diabetes Mellitus Type 2: No Hypoglycemia: No Shanthi's Syndrome: No Clarence's Disease: No Hyperthyroidism: No Hypothyroidism: No Thyroid Cancer: No Blood Problems Anemia: No Leukemia: No Hemophilia: No Thalassemia: No Sickle Cell Disease: No Clotting Problems: No Psychologic Problems Depression: No Anxiety: No Behavior Problems: No Self-Mutilation: No Attention Deficit Disorder: No Depression: No Other Problems Hospitalization: No Down Syndrome: No Developmental Delay: No Shingles: No Falls: No Blood Transfusions: No Blood Transfusion Reaction: No Anesthesia Reactions: No Human Immunodeficiency Virus (HIV): No Chicken Pox: No Measles: No Mumps: No Rubella (M[place]ese Measles): No Pertussis: No Clostridium Difficile: No Cancer: No Cervical Cancer: No Lung Cancer: No Surgical History Angioplasty: No Appendectomy: No Bariatric Surgery: No Breast Surgery: No History of Present Illness HPI Narrative Claudia Cuadra presents for Nexplanon insertion. This is her first time using this form of control. The patient has no prior experience with Nexplanon and expresses interest in understanding the aftercare process. The patient inquires about the healing process following the Nexplanon insertion. She is informed that a small bandage will be required for 24 hours at the insertion site, which is compared to the size of an injection needle. The patient is reassured that the control will be immediately effective upon insertion, with no need for backup contraception. 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 She is seeking an update on the status of these forms. Regarding potential side effects of Nexplanon, the patient is informed that most people do not experience significant effects. However, she is advised to return if she experiences any adverse reactions. 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 Medications and Supplements - Nexplanon - First time using this contraceptive implant Review of Systems Neurological: Positive for occasional tingling in fingers and wrist. Exam General General Appearance: alert, in no apparent distress and healthy appearing Head Head exam: atraumatic Neck Neck exam: Present normal inspection and trachea midline Chest Chest inspection: Present normal inspection and symmetric chest wall rise External exam: Present normal external exam; Absent tenderness Neuro Neurological exam: Present oriented X3 Psych Psychiatric exam: Present normal affect and normal mood Assessment & Plan Diagnosis / Problem List (1) fever: Status: Acute (2) General counseling and advice on female contraception: Status: Acute (3) Insertion of implantable subdermal contraceptive: Status: Acute Plan Claudia Cuadra, female patient, presenting for Nexplanon insertion and disability paperwork follow-up. Contraception Assessment: Patient is seeking long-acting reversible contraception. Nexplanon (subdermal etonogestrel implant) was chosen as the method. Patient has not used Nexplanon before. No contraindications were mentioned during the discussion. 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 Patient is following up on the status of these documents. Plan: - Review electronic system for submitted disability and leave paperwork - Complete necessary documentation for patient's disability and baby bonding leave - Inform patient of paperwork status after review Office Procedures OB Clinic LOC & Office Proc's Nursing/Assessment Patient Status: Established Patient OB Clinic Nursing Assessment: BP Monitoring, Medication Reconciliation, Update PMH in EMR and Vital Signs OB Clinic Coordination of Care: Consent,records obtained, informed consent, Education Simp Pt/Fam and Staff clarify orders Established Patient Charge Established Patient Point Assignment: 75 In Clinic Bedside tests Bedside HCG: Yes In Clinic Procedures Insertion of Control other NOT IUD's: Yes (NEXPLANON ) Urine HCG Ambulatory Location Ambulatory Dept Location: OB Clinic Urine HCG HCG: Yes Results Urine HCG Urine HCG Negative Last Edit by Jamilah Brown MA on 01/15/25 13:53 AUTOMATIC LATHE TENDER: BC insert/removal Procedure Notes Consent obtained: yes-verbal and yes-written Post-op diagnosis procedure note: Same IUD type inserted: Other (describe) IUD Lot and Exp: Lot#: [id number] Expiration date: 02/2027 Procedure Notes:: Informed consent was obtained. The patient was placed in a supine position with the non-dominant arm flexed at the elbow and externally rotated to expose the inner upper arm. The planned insertion site was located approximately 8?10 cm proximal to the medial epicondyle of the humerus on the inner aspect of the arm, avoiding neurovascular structures. After marking the insertion site, the area was cleansed with antiseptic solution and a local anesthetic (1% lidocaine) was infiltrated subdermally. The Nexplanon applicator was then inserted into the subdermal space at the marked site, using sterile technique. The implant was deployed and palpated along its entire length to confirm proper placement. The site was cleansed and dressed with a sterile pressure bandage. Post-Procedure Counseling: The patient was counseled on expected side effects, including irregular bleeding or amenorrhea. She was advised to monitor the insertion site for signs of infection (redness, swelling, discharge) or migration. Back-up contraception is not required if the implant was inserted within the first 5 days of the m enstrual cycle; otherwise, back-up protection for 7 days was advised. She was informed that the implant is effective for up to 3 years. No complications noted. Implant placement confirmed by palpation. Patient tolerated the procedure well.
== END 2025-01-15 14:35 | disposition home or self-care (01) ==
LOC: HODSOBC 13:17
PROVIDERS: PCP Obstetrics & Gynecology; Referring Provider Obstetrics & Gynecology; Supervising Provider Obstetrics & Gynecology; Visit Provider Obstetrics & Gynecology
DX: Z30.017 Encounter for initial prescription of implantable subdermal contraceptive (principal); O86.4 Pyrexia of unknown origin following delivery
CPT/HCPCS: 11981; 81025; J3490; J7301